=== PATIENT | female | born 1995 | race African-American/Black ===

== ENCOUNTER 2017-01-16 21:07 | Emergency (ER) | payer SELFPAY ==
[~2017-01-16] VITALS: Ht 165.1 cm; Wt 59.0 kg
[2017-01-16 21:29] VITALS: BP 113/69
[2017-01-16] MEDS ORDERED: Acetaminophen 500mg (ES) tab ORAL ONE (21:45)
[2017-01-16 22:15] VITALS: BP 113/69
[2017-01-16] MEDS ORDERED: AMOXICILLIN500 MG ORAL (22:15)
[2017-01-16] MEDS ORDERED: IBUPROFEN600 MG ORAL (22:15)
--- NOTE | 2017-01-17 01:38 | Emergency Room Report ---
History of Present Illness General Chief Complaint: General Complaint Source: Patient Present Illness HPI 21-year-old female presents to ED for evaluation. States the last 3 days she's had cough and cold congestion, bodyaches with fever. Poor appetite. Notes cough with yellowish phlegm. Notes earache and sore throat. Denies dysuria or hematuria. Denies nausea or vomiting. Denies sick contacts or recent travel. No other aggravating or relieving factors. Denies any other associated symptoms Allergies: Coded Allergies: No Known Allergies (Unverified , 01/16/17) Patient History Past Medical History: none Past Surgical History: none Pertinent Family History: none Social History: Denies: alcohol use, drug use, smoking Last Menstrual Period: 2014 depo shot Now: No Immunizations: UTD Reviewed Nursing Documentation: PMH: Agreed, PSxH: Agreed Nursing Documentation-PMH Past Medical History: No History, Except For Review of Systems All Other Systems: negative except mentioned in HPI Physical Exam Vital Signs Date Time Temp Pulse Resp B/P Pulse Ox O2 Delivery O2 Flow Rate FiO2 01/16/17 21:21 101.5 118 16 113/69 100 Room Air Sp02 EP Interpretation: reviewed, normal General Appearance: no apparent distress, alert, GCS 15, non-toxic Head: normocephalic, atraumatic Eyes: bilateral eye PERRL, bilateral eye normal inspection ENT: hearing grossly normal, normal pharynx, no angioedema, normal voice Neck: full range of motion, supple/symm/no masses Respiratory: chest non-tender, lungs clear, normal breath sounds, speaking full sentences Cardiovascular #1: regular rate, rhythm, no edema Cardiovascular #2: 2+ carotid (R), 2+ carotid (L), 2+ radial (R), 2+ radial (L) , 2+ dorsalis pedis (R), 2+ dorsalis pedis (L) Gastrointestinal: normal bowel sounds, non tender, soft, non-distended, no guarding, no rebound Rectal: deferred Genitourinary: normal inspection, no CVA tenderness Musculoskeletal: back normal, gait/station normal, normal range of motion, non- tender Neurologic: alert, oriented x3, responsive, motor strength/tone normal, sensory intact, speech normal Psychiatric: judgement/insight normal, memory normal, mood/affect normal, no suicidal/homicidal ideation Reflexes: 3+ bicep (R), 3+ bicep (L), 3+ tricep (R), 3+ tricep (L), 3+ knee (R) , 3+ knee (L) Skin: normal color, no rash, warm/dry, well hydrated Lymphatic: no adenopathy Medical Decision Making Diagnostic Impression: Primary Impression: Atypical pneumonia ER Course Hospital Course 21-year-old female presents to ED complaining of cough, fever, bodyaches Differential diagnoses include: URI, pharyngitis, otitis media, asthma Clinical course Patient placed on stretcher. After initial history, physical exam reveals a female in no acute distress. Bilateral TM unremarkable. No pharyngeal erythema. No tonsillar exudates. No lymphadenopathy. lungs clear. abdomen soft. Clinical findings consistent with atypical pneumonia. Given Tylenol in ED. Will discharge with antibiotic Diagnosis - atypical pneumonia Stable and discharged home with Rx amoxicillin. Instructed to followup with PMD. Return to ED if symptoms recur or worsen Last Vital Signs Date Time Temp Pulse Resp B/P Pulse Ox O2 Delivery O2 Flow Rate FiO2 01/16/17 22:15 101.5 102 16 113/69 100 Room Air Status: improved Disposition: HOME, SELF-CARE Condition: Stable Scripts Amoxicillin* (AMOXIL*) 500 Mg Capsule 500 MG ORAL THREE TIMES A DAY, #21 CAP Prov: KAI KING M.D. 01/16/17 Ibuprofen* (MOTRIN*) 600 Mg Tablet 600 MG ORAL Q8H Y for For Pain, #30 TAB 0 Refills Prov: KAI KING M.D. 01/16/17 Departure Forms: Return to Work Return to Work Date: Jan 19, 2017 Work Restrictions: None Patient Instructions: Pharyngitis, Drji-ol-Exep KAI KING M.D. Jan 17, 2017 01:38
== END 2017-01-16 22:15 | disposition home or self-care (01) ==
LOC: EMR 21:41
DX: J18.9 Pneumonia, unspecified organism (principal); H92.09 Otalgia, unspecified ear; J02.9 Acute pharyngitis, unspecified
CPT/HCPCS: 99284